=== PATIENT | female | born 1995 | race African-American/Black ===

== ENCOUNTER 2025-03-04 14:48 | Emergency (ER) | payer MEDICAID, SELFPAY ==
[2025-03-04 15:18] VITALS: BP 110/56; PULSE 59; RESP 16; TEMP 36.5; O2SAT 100; BMI 24.4
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
--- OUTSIDE RECORDS SUMMARY | 2025-03-04 18:42 | XMS_ITS | Clinical Summary ---
Author Organization [facility] Address [address] [place] [address] Care Team Providers Care Finisher Fine Diamond Dies Name Role Phone Kwaku Rodriguez [employer]ATION[employer] ENGINEER Primary Care Provider [phone] Source Comments PLEASE NOTE, if this patient is a minor, it may be UNLAWFUL to discuss sensitive information that is contained in these records (such as FAMILY PLANNING, MENTAL HEALTH or SUBSTANCE ABUSE) with the minor patient's parent or other person without the patient's specific authorization.[facility] Allergies No known active allergies Medications norethindrone-eth in estradiol (NECON 0.5/35, 28,) 0.5-35 mg-mcg per tabletIndications : control counseling Take 1 Tab by mouth once daily 30 Tab 5 11/30/19 18 Active amoxicillin (AMOXIL) 875 mg tabletIndications :Acute pharyngitis, unspecified etiology Take 1 Tab by mouth 2 (two) times daily 20 Tab 01/11/20 18 Active cetirizine-pseudo ephedrine (ZYRTEC-D) 5-120 mg per 12 hr tabletIndications :Acute pharyngitis, unspecified etiology Take 1 Tab by mouth every morning 20 Tab 01/11/20 18 Active etonogestrel-ethi nyl estradiol (NUVARING) 0.12-0.015 mg/24 hr vaginal ringIndications:B irth control,Encounter for other contraceptive management One ring, inserted vaginally and left in place continuously for 3 consecutive weeks, then removed for 1 week. 3 Each 3 12/05/19 19 Active Immunizations Immunization Administration Dates Next Due HPV 9 (Gardasil) 11/29/2017 TDAP 11/29/2017 Family History Medical History Relation Name Comments Diabetes Mother Diabetes Sister Relation Name Status Comments Father Alive Mother Alive Sister Alive Social History Tobacco Use Types Packs/Day Years Used Date Smoking Tobacco: Never Smokeless Tobacco: Never Alcohol Use Standard Drinks/Week Comments Yes 0 (1 standard drink = 0.6 oz pur e alcohol) weekends Social Connections Answer Date Recorded Social Connections and Isolation 0 03/23/2019 Financial Resource Strain Answer Date R ecorded Financial Resource Strain 0 2018 Stress Answer Date Recorded Stress 0 03/23/2019 Physical Activity Answer Date Recorded Physical Activity 0 03/23/2019 Food Insecurity Answer Date Recorded Food 0 03/23/2019 Transportation Needs Answer Date Record ed Transportation 0 03/23/2019 Housing Stability Answer Date Recorded Housing 0 03/23/2019 Safety and Environment Answer Date Vikas rded Safety 0 03/23/2019 Utilities Answer Date Recorded Utilities 0 03/23/2019 Employment Answer Date Recorded Employment 0 03/23/2019 Comments No Sex and Gender Information Value Date Recorded Sex Assigned at Female 11/29/2017 8:26 AM PDT Legal Sex Female 8:40 AM PDT Gender Identity Female 11/29/2017 8:26 AM PDT Sexual Orientation Straight 11/29/2017 8: 26 AM PDT Last Filed Vital Signs Vital Sign Reading Time Taken Comments Blood Pressure 110/62 12/04/2018 3:40 PM EDT Pulse 72 12/04/2018 3:40 PM EDT Temperature 36.9 C (98.4 F) 12/04/2018 3:40 PM EDT Respiratory Rate 16 12/04/2018 3:40 PM EDT Oxygen Saturation 99% 01/10/2018 1:17 PM EDT Inhaled Oxygen Concentration - - Weight 57.9 kg (127 lb 9.6 oz) 12/04/2018 3:40 P M EDT Height 161.9 cm (5' 3.75 ) 11/29/2017 11:25 AM E DT Body Mass Index 22.07 11/29/2017 11:25 AM EDT Plan of Treatment Not on file [facility] Care Teams Finisher Fine Diamond Dies Relationship Specialty Start Date End Date Kwaku Rodriguez FNP [facility] [place] [address] PCP - General Family Medicine, [facility] FEEDER 11/29/17
== END 2025-03-04 19:12 | disposition left against medical advice (07) ==
PROVIDERS: Emergency Provider Emergency Medicine
DX: R51.9 Headache, unspecified (principal); Z53.21 Procedure and treatment not carried out due to patient leaving prior to being seen by health care provider
CPT/HCPCS: 99281